=== PATIENT | female | born 1940 | race Caucasian/White ===

== ENCOUNTER 2021-05-24 04:02 | Observation (INO) ==
[2021-05-24] MEDS ORDERED: Naloxone 0.4 MG/ML INJ IVP PRN (07:31)
[2021-05-24] MEDS ORDERED: Acetaminophen 325 MG TABLET PO PRN (07:31)
[2021-05-24] MEDS ORDERED: Ondansetron 4 MG/2 ML VIAL IVP PRN ×2 (07:31→17:32)
[2021-05-24 08:44] LABS: Basophils # 0.1 K/mcL (0.0-0.2); Basophils % 0.9 %; Eosinophils % 0.7 %; Hematocrit 39.6 % (35.3-44.9); Hemoglobin 12.7 g/dL (11.5-15.4); Immature Granulocytes % 0.2 % (0-4); Lymphocytes # 1.6 K/mcL (0.6-4.6); Lymphocytes % 27.2 %; Mean Corpuscular HGB Conc 32.1 g/dL (31.6-35.5); Mean Corpuscular Hemoglobin 30.8 pg (28.0-33.3); Mean Corpuscular Volume 96.1 fL (83.0-100.0); Mean Platelet Volume 9.7 fL (9.4-12.4); Monocytes # 0.4 K/mcL (0.0-1.3); Neutrophils # 3.7 K/mcL (1.6-8.9); Platelet Count 201 K/mcL (140-400); Red Blood Count 4.12 M/mcL (3.82-4.97); Red Cell Distribution Width 12.4 % (11.5-14.5); White Blood Count 5.8 K/mcL (4.3-11.1)
[2021-05-24] MEDS: cefTRIAXone 1,000 MG in Water for inj. (sterile) 10 ML IVP SCH (08:48)
[2021-05-24] MEDS: Pantoprazole 40 MG VIAL IVP SCH (08:49)
[2021-05-24] MEDS: 0.9 % Sodium Chloride 2,000 ML IVC SCH (08:50)
[2021-05-24 09:02] LABS: Alanine Aminotransferase 13 Units/L (7-52); Albumin 3.9 g/dL (3.5-5.7); Albumin/Globulin Ratio 1.8 (1.1-2.2); Alkaline Phosphatase 58 Units/L (34-104); Aspartate Amino Transferase 23 Units/L (13-39); BUN/Creatinine Ratio 16 (6-26); Bilirubin,Total 0.4 mg/dL (0.3-1.0); Blood Urea Nitrogen 14 mg/dL (8-23); Carbon Dioxide 25 mEq/L (23-29); Chloride 106 mEq/L (98-107); Globulin 2.2 g/dL (2.4-3.5); Glucose 97 mg/dL (70-105); Osmolality,Calculated 284 (280-300); Potassium 4.3 mEq/L (3.5-5.1); Sodium 137 mEq/L (136-145); Total Protein 6.1 g/dL (6.4-8.9); eGFR For African Americans > 60 (> 60); eGFR For Non-African Americans > 60 (> 60)
[2021-05-24 09:45] LABS: Calcium 8.6 mg/dL (8.6-10.3)
[2021-05-24] MEDS: *HR* FentaNYL (PF) 100 MCG/2 ML VIAL IVP SCH ×2 (11:25→15:18)
[2021-05-24 12:20] LABS: Bilirubin,Urine Negative (Negative); Blood,Urine Moderate (Negative); Clarity,Urine Turbid (Clear); Color,Urine Colorless (Yellow); Glucose,Urine (UA) Normal (Normal); Ketones,Urine Negative (Negative); Leukocyte Esterase,Urine Negative (Negative); Mucus,Urine Few per lpf (None-Few); Nitrite,Urine Negative (Negative); PH,Urine 6.5 pH Units (5.0-8.0); Protein,Urine 100 mg/dL (Neg-Trace); RBC,Urine 50-100 per hpf (0-3); Specific Gravity,Urine 1.014 (1.010-1.025); Squamous Epithelial Cell,Urine Few per hpf (None-Few); Urobilinogen,Urine Normal (Normal)
[2021-05-24] MEDS ORDERED: Isovue-300 50ML VIAL ONE (16:15)
[2021-05-24] MEDS ORDERED: Famotidine 20 MG/2 ML VIAL ONE (16:16)
[2021-05-24] MEDS ORDERED: *HR* Propofol 200 MG/20 ML VIAL IVP ONE (16:17)
[2021-05-24] MEDS ORDERED: *HR* FentaNYL (PF) 100 MCG/2 ML VIAL ONE (16:17)
[2021-05-24] MEDS ORDERED: *HR* Succinylcholine 200 MG/10 ML VIAL IVP ONE (16:24)
[2021-05-24] MEDS ORDERED: Ondansetron 4 MG/2 ML VIAL ONE (16:24)
[2021-05-24] MEDS ORDERED: Lidocaine -MPF 2% 2 ML VIAL ONE (16:24)
[2021-05-24] MEDS: *HR* Heparin 5,000 UNIT/ML VIAL SQ SCH (18:55)
[2021-05-24] MEDS: *HR* FentaNYL (PF) 100 MCG/2 ML VIAL IVP PRN (20:47)
[2021-05-24] MEDS: Sucralfate 1 GM TABLET PO SCH (21:04)
[2021-05-25] MEDS: 0.9 % Sodium Chloride 2,000 ML IVC SCH (04:52)
[2021-05-25] MEDS: *HR* FentaNYL (PF) 100 MCG/2 ML VIAL IVP PRN (04:53)
[2021-05-25] MEDS: *HR* Heparin 5,000 UNIT/ML VIAL SQ SCH (04:53)
[2021-05-25 06:38] VITALS: BP 132/74; PULSE 63; TEMP 98.6; O2SAT 96
[2021-05-25 07:05] LABS: Hematocrit 37.1 % (35.3-44.9); Hemoglobin 12.2 g/dL (11.5-15.4); Immature Granulocytes % 0.2 % (0-4); Lymphocytes % 21.7 %; Mean Corpuscular HGB Conc 32.9 g/dL (31.6-35.5); Mean Corpuscular Hemoglobin 31.1 pg (28.0-33.3); Mean Corpuscular Volume 94.6 fL (83.0-100.0); Mean Platelet Volume 9.7 fL (9.4-12.4); Platelet Count 200 K/mcL (140-400); Red Blood Count 3.92 M/mcL (3.82-4.97); Red Cell Distribution Width 12.1 % (11.5-14.5); Segmented Neutrophils % 72.3 %; White Blood Count 4.7 K/mcL (4.3-11.1)
[2021-05-25 07:06] LABS: Basophils % 0.2 %; Monocytes # 0.3 K/mcL (0.0-1.3); Monocytes % 5.6 %; Neutrophils # 3.4 K/mcL (1.6-8.9)
[2021-05-25 07:26] LABS: BUN/Creatinine Ratio 16 (6-26); Blood Urea Nitrogen 14 mg/dL (8-23); Carbon Dioxide 25 mEq/L (23-29); Chloride 106 mEq/L (98-107); Glucose 104 mg/dL (70-105); Osmolality,Calculated 285 (280-300); Potassium 4.6 mEq/L (3.5-5.1); Sodium 137 mEq/L (136-145); eGFR For African Americans > 60 (> 60); eGFR For Non-African Americans > 60 (> 60)
[2021-05-25] MEDS: Sucralfate 1 GM TABLET PO SCH (08:44)
[2021-05-25] MEDS: cefTRIAXone 1,000 MG in Water for inj. (sterile) 10 ML IVP SCH (10:03)
[2021-05-25] MEDS: Pantoprazole 40 MG VIAL IVP SCH (10:03)
== END 2021-05-25 11:12 | disposition home or self-care (01) ==
LOC: 3ANU → SUATTDRO 06:29
PROVIDERS: ADMIT Family Medicine; ATTEND Internal Medicine